=== PATIENT | female | born 1980 | race Caucasian/White ===

== ENCOUNTER 2020-02-21 12:07 | Inpatient (IN) ==
--- NOTE | 2020-02-21 12:08 | Emergency Department Note ---
Impression & Plan Stroke-like symptoms, Hypokalemia, Dizziness ED Provider Note NAME: ASMITA ALEGRIA AGE: 39 SEX: F : 1980 ARRIVES VIA: Ambulance INFORMANT: Patient, ED PROVIDER(S): Javid Deshpande MD Chief Complaint: Left upper extremity weakness, facial droop HPI: Patient was seen due to concern for left upper extremity weakness and facial droop. The patient did have associated slurred speech and numbness in the left upper extremity. The patient denies any fevers or chills. The patient states that the onset of symptoms was around 11 AM. The patient had been on her way with family to the pool. EMS did arrive and the patient still had some mild expressive aphasia per the patient but no further slurred speech and her weakness and droop had also dissipated. I did receive a prehospital command call for this and the patient had stable vital signs was afebrile and had a normal BSG. Upon presentation the patient states that her symptoms have subsequently improved. The patient denies symptoms i.e. chest pains, shortness of breath, abdominal pain, nausea, vomiting. The patient does complain of some head fullness but no pain. The patient does relate that she recently did start P90 X and did have 2 workouts. 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 Patient denies any alcohol tobacco or drug use. Patient does relate that she has had some slight fatigue and lightheadedness with position changes that have occurred over the last several weeks. No history of seizures. ROS: See HPI for pertinent positives and negatives. A total of 10 systems were reviewed and otherwise negative. Past medical history: See below Surgical history: See below Social history: See below Physical Exam: GENERAL: Wearing a mask. NAD, non-toxic. EYE EXAM: Normal conjunctiva. PERRL, no anisocoria and EOM's grossly intact w/o pain. NECK: Supple, no nuchal rigidity, no adenopathy, non-tender. No signs of meningismus. LUNGS: Clear to auscultation. Normal chest wall mechanics. HEART: NSR, no MRG. ABDOMEN: Abdomen soft, non-tender, normo-active bowel sounds, no masses, no rebound or guarding. BACK: No CVA TTP. SKIN: No rashes and no bruising. UPPER EXTREMITIES: Upper extremities are grossly normal. LOWER EXTREMITIES: Grossly normal, no edema. NEURO EXAM: A&O x3, cranial nerves II-XII grossly intact, normal speech, mild diffuse weakness of the bilateral upper and lower extremities nonfocal, no sensory deficits. Differential diagnoses: Infection, dehydration, metabolic abnormality, hypo/hyperglycemia, electrolyte disturbance, anemia, hypoxia, cardiac sources, intracerebral event, toxicologic, neurologic, as well as other pathologies. Course: Patient was seen and evaluated the bedside. Full history physical exam was performed. EKG: Indication: Stroke work-up Normal sinus rhythm, rate of 74, normal intervals, normal axis, no ST changes or T WI. No prior EKGs for comparison. Imaging Studies: Radiology results as stated below per my review in the radiologist's interpretation: CT head/brain wo con CT DOSE: HISTORY: Mental status change Stroke evaluation TECHNIQUE: Multiaxial CT images of the head were performed without the use of intravenous contrast. A dose lowering technique was utilized adhering to the principles of ALARA. Comparison: None. Findings: The paranasal sinuses and mastoid air cells are clear. The calvarium and skull base are intact. The ventricles and sulci are within normal limits. There is no mass, hematoma, midline shift, or acute infarct. Impression: No acute intracranial abnormality. ACT 112: Negative or not required by law. The above report was generated using voice recognition software. It may contain grammatical, syntax or spelling errors. Electronically signed by: Mayco Barriga M.D. 02/21/2020 12:27 PM Dictated: 02/21/20 1227 Transcribed: 02/21/20 1227 CTA ANGIOGRAPHY OF THE HEAD CLINICAL HISTORY: Stroke evaluation. COMPARISON STUDY: No previous studies for comparison. TECHNIQUE: Helical axial images of the head were obtained following uneventful intravenous administration of 120 cc of Optiray 320. Sagittal and coronal r econstructions were viewed as well as maximal intensity projections on an independent 3-D workstation. Automated exposure control was utilized for the study. A dose lowering technique was utilized adhering to the principles of ALARA. FINDINGS: Please note that the head CT will be reported separately. No acute intracranial hemorrhage, midline shift or mass effect is present. The ventricular system is normal. The basilar cisterns are patent. There are no extra axial collections. The bilateral M1, M2, A1 and A2 segments are patent. There is no intracranial aneurysm or abrupt vessel cutoff. No intraluminal thrombus is identified. The right vertebral artery is diminutive, likely on a congenital basis. The basilar artery is patent. The lateral posterior cerebral arteries are patent. Posterior circulation is intact. IMPRESSION: Unremarkable CTA of the head. ACT 112: Negative or not required by law. Electronically signed by: Gautam Arias M.D. 02/21/2020 12:39 PM Dictated: 02/21/207 Transcribed: 02/21/[address] angio neck with con HISTORY: Mental status change Stroke evaluation TECHNIQUE: Multiaxial CT angiography of the neck was performed IV contrast: 120 cc All measurements were calculated based on NASCET criteria. Maximum intensity projection images were also obtained. A dose lowering technique was utilized adhering to the principles of ALARA. COMPARISON STUDY: None. FINDINGS: The aortic arch and proximal great vessels are widely patent. There is no significant stenosis, occlusion, or dissection identified within the bilateral common carotid, internal carotid, or vertebral arteries. 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 IMPRESSION: No significant stenosis, occlusion, or dissection identified within the carotid or vertebral arteries. Congenitally small right vertebral artery. ACT 112: Negative or not required by law. The above report was generated using voice recognition software. It may contain grammatical, syntax or spelling errors. Electronically signed by: Mayco Barriga M.D. 02/21/2020 12:30 PM Dictated: 02/21/20 1227 Transcribed: 02/21/201226 MR brain wo con HISTORY: Pain. Neuropathy. LUE weakness/slurred speech TECHNIQUE: Multiplanar multisequence MRI of the brain was performed without the use of contrast. COMPARISON STUDY: None. FINDINGS: There are no areas of restricted diffusion to suggest acute infarction. The midline structures are intact. The paranasal sinuses are clear. The mastoid air cells are clear. The ventricles and sulci are within normal limits for age. There is no mass, hematoma, midline shift. The major vascular flow-voids at the skull base are well maintained. IMPRESSION: No acute intracranial abnormality. ACT 112: Negative or not required by law. The above report was generated using voice recognition software. It may contain grammatical, syntax or spelling errors. Electronically signed by: Mayco Barriga M.D. 02/21/2020 2:27 PM Dictated: 02/21/201425 Transcribed: 02/21/201425 Cardiac monitoring: An order was placed for continuous cardiac monitoring. The monitor shows a rate of 82 with sinus rhythm. MDM: Patient was seen due to concern for left upper extremity weakness and facial droop. Symptoms have essentially dissipated only with diffuse weakness. Blood work was obtained patient was given IV fluids. CT head and CT angiography of the head and neck were obtained and a code stroke was initiated when I did receive a prehospital command call given the patient symptoms. Speak with Dr. Wells with [facility] neurology tele-stroke. No TPA at this time as the patient has an NIH stroke scale of 0 with no focal deficits. Her symptoms have virtually resolved with the exception of diffuse weakness but no focal weakness or facial droop noted. Patient's blood work fairly unremarkable. Patient has normal white count H&H and platelet count. Patient's kidney function is unremarkable. Very mild hypokalemia noted. Troponin is not detectable. Patient CT of the head is negative. CT angios of the head and neck shows congenital right-sided vertebral being small. MR brain was also ordered after further discussion with Dr. Jackson recommended a full dose aspirin an MRI of the brain. MR brain negative. I did speak the on-call hospitalist and the patient was admitted by [facility] service by Dr. Tejeda. Critical Care: I have personally spent 42 minutes of critical care time in direct management of this patient. This includes bedside care, interpretation of diagnostic studies, and testing, discussion with consultants, patient, and family members, and other require inpatient management activities. This 42 minutes is in excess of all separately billable procedures. Past Med/Surg History Medical History delivery delivered Family History Mother Ovarian cancer Social History Smoking Status: Never smoker Hx Alcohol Use: Yes Alcohol type: wine Hx Substance Use: No Facs Teacher Required: No Beliefs That Will Affect Care: None Current Living Situation: Family Feels Safe at Home: Yes Safety Concerns: Feels Safe At This Time Allergies Allergies Allergy/AdvReac Type Severity Reaction Status Date / Time No Known Allergies Allergy Unverified 02/21/20 12:58 Home Meds Home Medications Medication Instructions Recorded Confirmed No Known Home Medications 02/21/20 02/21/20 Results & Data (ED) Vital Signs Vital Signs - 24 hr 02/21/20 12:15 02/21/20 12:40 02/21/20 13:05 Temperature 36.7 C Temperature Source Oral Pulse Rate 90 Pulse Rate [Finger] 82 88 Respiratory Rate 18 16 16 Respiratory Effort / Characteristics Non-Labored Non-Labored Non-Labored Respiratory Depth Normal Normal Normal Blood Pressure 120/79 Blood Pressure [Right Arm] 128/81 128/94 Blood Pressure Mean 92 Blood Pressure Mean [Right Arm] 96 105 Pulse Oximetry 100 100 100 Oxygen Delivery Method Room Air Room Air Room Air Sepsis Recent Fever Within 48 Hours No Sepsis New/Unexplained Change in Mental Status No Sepsis Action Taken by Nursing No Action Required 02/21/20 13:37 Temperature Temperature Source Pulse Rate Pulse Rate [Finger] 81 Respiratory Rate 16 Respiratory Effort / Characteristics Non-Labored Respiratory Depth Normal Blood Pressure Blood Pressure [Right Arm] 123/82 Blood Pressure Mean Blood Pressure Mean [Right Arm] 95 Pulse Oximetry 98 Oxygen Delivery Method Room Air Sepsis Recent Fever Within 48 Hours Sepsis New/Unexplained Change in Mental Status Sepsis Action Taken by [facility] Medications Current Medication List: was personally reviewed by me Laboratory Data Attestation: I reviewed the patient's lab results. Result diagrams: 02/21/20 12:05 02/21/20 12:20 Lab Results 02/21/20 02/21/20 02/21/20 Range/Units 12:05 12:20 12:20 WBC 6.50 (4.8-10.8) K/uL RBC 4.37 (4.2-5.4) M/uL Hgb 12.9 (12.0-16.0) g/dL Hct 38.2 (37-47) % MCV 87.4 (80-100) fL MCH 29.5 (25-34) pg MCHC 33.8 (32-36) g/dL RDW Std Deviation 39.5 (36.4-46.3) fL RDW Coeff of Laney 12.3 (11.5-14.5) % Plt Count 179 (130-400) K/uL MPV 11.1 H (7.4-10.4) fL Immature Gran % (Auto) 0.2 % Neut % (Auto) 50.1 % Lymph % (Auto) 39.5 % Stanton % (Auto) 8.5 % Eos % (Auto) 1.4 % Baso % (Auto) 0.3 % Neut # (Auto) 3.26 (1.4-6.5) K/uL Lymph # (Auto) 2.57 (1.2-3.4) K/uL Stanton # (Auto) 0.55 (0.11-0.59) K/uL Eos # (Auto) 0.09 (0-0.5) K/uL Baso # (Auto) 0.02 (0-0.2) K/uL Immature Gran # (Auto) 0.01 (0.00-0.02) K/uL PT 10.9 (9.0-12.0) Seconds INR 1.0 (0.9-1.1) APTT 26.1 (21.0-31.0) Seconds PTT Ratio 0.9 Sodium (136-145) mmol/L Potassium (3.5-5.1) mmol/L Chloride (98-107) mmol/L Carbon Dioxide (21-32) mmol/L Anion Gap (3-11) BUN (7-18) mg/dl Creatinine (0.6-1.2) mg/dl Est Cr Clr Drug Dosing ml/min Est GFR ( Amer) Est GFR (Non-Af Amer) BUN/Creatinine Ratio (10-20) Glucose (70-99) mg/dl Calcium (8.5-10.1) mg/dl Magnesium (1.8-2.4) mg/dl Total Bilirubin (0.2-1) mg/dl AST (15-37) U/L ALT (12-78) U/L Alkaline Phosphatase (45-117) U/L Total Creatine Kinase (26-192) U/L Troponin I (0-0.045) ng/ml Total Protein (6.4-8.2) gm/dl Albumin (3.4-5.0) gm/dl Globulin (2.5-4.0) gm/dl Albumin/Globulin Ratio (0.9-2) Blood Type A Positive Antibody Screen NEGATIVE 02/21/20 Range/Units 12:20 WBC (4.8-10.8) K/uL RBC (4.2-5.4) M/uL Hgb (12.0-16.0) g/dL Hct (37-47) % MCV (80-100) fL MCH (25-34) pg MCHC (32-36) g/dL RDW Std Deviation (36.4-46.3) fL RDW Coeff of Laney (11.5-14.5) % Plt Count (130-400) K/uL MPV (7.4-10.4) fL Immature Gran % (Auto) % Neut % (Auto) % Lymph % (Auto) % Stanton % (Auto) % Eos % (Auto) % Baso % (Auto) % Neut # (Auto) (1.4-6.5) K/uL Lymph # (Auto) (1.2-3.4) K/uL Stanton # (Auto) (0.11-0.59) K/uL Eos # (Auto) (0-0.5) K/uL Baso # (Auto) (0-0.2) K/uL Immature Gran # (Auto) (0.00-0.02) K/uL PT (9.0-12.0) Seconds INR (0.9-1.1) APTT (21.0-31.0) Seconds PTT Ratio Sodium 139 (136-145) mmol/L Potassium 3.3 L (3.5-5.1) mmol/L Chloride 106 (98-107) mmol/L Carbon Dioxide 26 (21-32) mmol/L Anion Gap 7.0 (3-11) BUN 10 (7-18) mg/dl Creatinine 0.80 (0.6-1.2) mg/dl Est Cr Clr Drug Dosing 103.4 ml/min Est GFR ( Amer) 106.1 Est GFR (Non-Af Amer) 91.6 BUN/Creatinine Ratio 12.6 (10-20) Glucose 103 H (70-99) mg/dl Calcium 9.9 (8.5-10.1) mg/dl Magnesium 1.9 (1.8-2.4) mg/dl Total Bilirubin 0.9 (0.2-1) mg/dl AST 17 (15-37) U/L ALT 26 (12-78) U/L Alkaline Phosphatase 41 L (45-117) U/L Total Creatine Kinase 68 (26-192) U/L Troponin I < 0.015 (0-0.045) ng/ml Total Protein 7.8 (6.4-8.2) gm/dl Albumin 4.0 (3.4-5.0) gm/dl Globulin 3.8 (2.5-4.0) gm/dl Albumin/Globulin Ratio 1.1 (0.9-2) Blood Type Antibody Screen Administered Medications Atorvastatin Calcium (Lipitor) 40 mg PO QAM VARUN Stop: 03/22/20 14:47 Last Admin: 02/21/20 15:58 Dose: 40 mg Documented by: [id number] Ondansetron HCl (Zofran) 4 mg IV Q6H PRN PRN Reason: Nausea Stop: 03/22/20 14:47 Last Admin: 02/21/20 15:25 Dose: 4 mg Documented by: [id number] Potassium Chloride (Klor-Con M20) 40 meq PO ONE ONE Stop: 02/21/20 17:01 Last Admin: 02/21/20 15:58 Dose: 40 meq Documented by: [id number] Discontinued Medications Aspirin (Aspirin) 324 mg PO NOW STA Stop: 02/21/20 12:58 Last Admin: 02/21/20 15:05 Dose: 324 mg Documented by: [id number] Sodium Chloride (Nss 1000ml) 1,000 mls @ 999 mls/hr IV .Q1H1M ONE Stop: 02/21/20 13:27 Last Infusion: 02/21/20 16:09 Dose: 0 mls/hr Documented by: [id number] Admin: 02/21/20 15:05 Dose: 999 mls/hr Documented by: [id number] Ioversol (Optiray 320 125ml) 120 ml IV ONCE ONE Stop: 02/21/20 12:12 Last Admin: 02/21/20 12:11 Dose: 120 ml Documented by: [id number] Discharge Plan Visit Data *Final* Discharge Date/Time: 02/21/20 14:28 Chief Complaint: Stroke Alert Stated Complaint: Stroke Alert ED Provider: Javid Deshpande Discharge Problem: Stroke-like symptoms, Hypokalemia, Dizziness Patient Disposition: Admitted As Inpatient Discharge Instructions Interventions: ED Discharge Assessment Last Done: 02/21/20 14:28
[2020-02-21] MEDS ORDERED: OPTIRAY 320 125ml IV ONE (12:11)
[2020-02-21] MEDS ORDERED: SODIUM CHLORIDE 0.9% 1000ML 1,000 ML IV ONE (12:27)
--- NOTE | 2020-02-21 12:28 | CT Scan Report ---
CT head/brain wo con CT DOSE: HISTORY: Mental status change Stroke evaluation TECHNIQUE: Multiaxial CT images of the head were performed without the use of intravenous contrast. A dose lowering technique was utilized adhering to the principles of ALARA. Comparison: None. Findings: The paranasal sinuses and mastoid air cells are clear. The calvarium and skull base are int act. The ventricles and sulci are within normal limits. There is no mass, hematoma, midline shift, or acute infarct. Impression: No acute intracranial abnormality. ACT 112: Negative or not required by law. The above report was generated using voice recognition software. It may contain grammatical, syntax or spelling errors. Electronically signed by: Mayco Barriga M.D. 02/21/2020 12:27 PM
[2020-02-21 12:29] LABS: Basophils # (auto) 0.02 K/uL (0-0.2); Basophils % (auto) 0.3 %; Eosinophils # (auto) 0.09 K/uL (0-0.5); Eosinophils % (auto) 1.4 %; Hematocrit (blood only) 38.2 % (37-47); Hemoglobin 12.9 g/dL (12.0-16.0); Immature Granulocytes # (auto) 0.01 K/uL (0.00-0.02); Immature Granulocytes % (auto) 0.2 %; Lymphocytes # (auto) 2.57 K/uL (1.2-3.4); Lymphocytes % (auto) 39.5 %; Mean Corpuscular Hemoglobin 29.5 pg (25-34); Mean Corpuscular Hgb Conc 33.8 g/dL (32-36); Mean Corpuscular Volume 87.4 fL (80-100); Mean Platelet Volume 11.1 fL (7.4-10.4); Monocytes # (auto) 0.55 K/uL (0.11-0.59); Monocytes % (auto) 8.5 %; Neutrophils # (auto) 3.26 K/uL (1.4-6.5); Neutrophils % (auto) 50.1 %; Platelet Count 179 K/uL (130-400); RDW Coefficient of Variation 12.3 % (11.5-14.5); RDW Standard Deviation 39.5 fL (36.4-46.3); Red Blood Count 4.37 M/uL (4.2-5.4)
--- NOTE | 2020-02-21 12:32 | CT Scan Report ---
CT angio neck with con HISTORY: Mental status change Stroke evaluation TECHNIQUE: Multiaxial CT angiography of the neck was performed IV contrast: 120 cc All measurements were calculated based on NASCET criteria. Maximum intensity projection images were also obtained. A dose lowering technique was utilized adhering to the principles of ALARA. COMPARISON STUDY: None. FINDINGS: The aortic arch and proximal great vessels are widely patent. There is no significant sten osis, occlusion, or dissection identified within the bilateral common carotid, internal carotid, or v ertebral arteries. 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 IMPRESSION: No significant stenosis, occlusion, or dissection identified within the carotid or vertebral arteries . Congenitally small right vertebral artery. ACT 112: Negative or not required by law. The above report was generated using voice recognition software. It may contain grammatical, syntax or spelling errors. Electronically signed by: Mayco Barriga M.D. 02/21/2020 12:30 PM
--- NOTE | 2020-02-21 12:41 | CT Scan Report ---
CTA ANGIOGRAPHY OF THE HEAD CLINICAL HISTORY: Stroke evaluation. COMPARISON STUDY: No previous studies for comparison. TECHNIQUE: Helical axial images of the head were obtained following uneventful intravenous administr ation of 120 cc of Optiray 320. Sagittal and coronal reconstructions were viewed as well as maximal i ntensity projections on an independent 3-D workstation. Automated exposure control was utilized for the study. A dose lowering technique was utilized adhering to the principles of ALARA. FINDINGS: Please note that the head CT will be reported separately. No acute intracranial hemorrhage, midline shift or mass effect is present. The ventricular system is normal. The basilar cisterns are patent. There are no extra axial collections. The bilateral M1, M2, A1 and A2 segments are patent. Th ere is no intracranial aneurysm or abrupt vessel cutoff. No intraluminal thrombus is identified. The right vertebral artery is diminutive, likely on a congenital basis. The basilar artery is patent. The lateral posterior cerebral arteries are patent. Posterior circulation is intact. IMPRESSION: Unremarkable CTA of the head. ACT 112: Negative or not required by law. Electronically signed by: Gautam Arias M.D. 02/21/2020 12:39 PM
[2020-02-21 12:48] LABS: Partial Thromboplastin Ratio 0.9; Partial Thromboplastin Time 26.1 Seconds (21.0-31.0); Prothrombin Time 10.9 Seconds (9.0-12.0)
[2020-02-21 12:51] LABS: Alanine Aminotransferase 26 U/L (12-78); Aspartate Aminotransferase 17 U/L (15-37); BUN Creatinine Ratio 12.6 (10-20); Blood Urea Nitrogen 10 mg/dl (7-18); Calcium 9.9 mg/dl (8.5-10.1); Carbon Dioxide 26 mmol/L (21-32); Chloride 106 mmol/L (98-107); Creatinine Clr Calc Pharmacy 103.4 ml/min; Est GFR (African American) 106.1; Est GFR (Non-African American) 91.6; Glucose 103 mg/dl (70-99); Magnesium 1.9 mg/dl (1.8-2.4); Potassium 3.3 mmol/L (3.5-5.1); Sodium 139 mmol/L (136-145)
[2020-02-21 12:55] LABS: Albumin Globulin Ratio 1.1 (0.9-2); Alkaline Phosphatase 41 U/L (45-117); Bilirubin,Total 0.9 mg/dl (0.2-1); Creatine Kinase 68 U/L (26-192); Globulin 3.8 gm/dl (2.5-4.0); Total Protein 7.8 gm/dl (6.4-8.2); Troponin I < 0.015 ng/ml (0-0.045)
[2020-02-21] MEDS ORDERED: ASPIRIN CHEW 324 MG PO STA (12:57)
--- NOTE | 2020-02-21 13:36 | History & Physical Report ---
Date of Service February 21, 2020 Assessment & Plan (1) Stroke-like symptoms: Stroke like symptoms Possible TIA Not a candidate for tPA Admit in Tele MRI Brain:No acute intracranial abnormality. CT head: showed no acute pathology Head CTA:Unremarkable CTA of the head. Neck CTA: No significant stenosis, occlusion, or dissection identified within the carotid or vertebral arteries. Congenitally small right vertebral artery. Stroke work up including lipid panel, A1C, ECHO Speech and swallow, PT/OT eval Start aspirin, Lipitor Neuro checks, Neurology consult Dizziness Likely orthostatic CT head: No acute intracranial findings Monitor in Telemetry for arrhythmia Check Orthostatics started on IV fluids ECHO pending Trend cardiac enzymes ECG shows:no signs of ischemia Fall precautions Hypokalemia Normal magnesium levels Will replete electrolytes as needed Palpitations Monitor on Tele Check TSH May need event monitor arranged as outpatient Initial Troponin negative Repeat EKG in AM DVT Px: SCDs for now Code Status Full Code History of Present Illness Chief Complaint: Stroke like symptoms Primary Care Provider: MD Beltran Hall is a 39 yr old female with 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 She noticed to have intermittent palpitations for last 2 weeks. She started doing P90 X workouts 2 days ago. Today morning, patient dis not have her breakfast but drank coffee and at around 11 Am she developed nausea, left calf numbness which extended upwards to her gluteal region, left facial numbness, B/L Leg weakness (Left greater than right) associated with slurred speech, occipital headache, proprioception, lightheadedness which lasted for about 60 minutes. Currently she has mild occipital headache, 3/10 intensity. Also currently dyspnea, palpitations resolved. Denies any history of chest pain, pedal edema, diaphoresis, cough, fever, chills, LOC, change in vision, double/blurry vision, vertigo, facial deformity, bowel/bladder incontinence, vomiting, abdominal pain, diarrhea, dysuria. She did admit to notice some lightheadedness with position change. Code Stroke was initiated in ED and ER physician spoke with Dr. Wells with [facility] neurology tele-stroke and was thought to be not a candidate for TPA. Her Imaging studies showed no acute changes. Allergies Allergy/AdvReac Type Severity Reaction Status Date / Time No Known Allergies Allergy Unverified 02/21/20 12:58 Home Medications Home Medications Medication Instructions Recorded Confirmed Type No Known Home Medications 02/21/20 02/21/20 History Past Med/Surg History Medical History delivery delivered Family History Mother Ovarian cancer Social History Smoking Status: Never smoker Hx Alcohol Use: Yes Alcohol type: wine Hx Substance Use: No Body Engineer Required: No Beliefs That Will Affect Care: None Current Living Situation: Family Feels Safe at Home: Yes Safety Concerns: Feels Safe At This Time Review of Systems Review of Systems: All systems reviewed & are unremarkable except as noted in HPI & below Physical Exam Physical Exam: Physical Exam: Vitals signs as noted above General Appearance:Moderately built and nourished, no apparent distress Head: normocephalic, Atraumatic Eyes: normal inspection, EOMI Neck: supple, Trachea midline Respiratory/Chest: Normal breath sounds, CTA, No accessory muscle use Cardiovascular: S1, S2, No murmur Abdomen/GI:Soft, Non tender, Bowel sounds present Extremities/Musculoskelatal:normal inspection, no edema Neurologic/Psych:AAOX3, grossly no focal neurological deficits Skin: normal color, warm Results & Data Results & Data ([facility]) Vital Signs (Past 12 Hours) Vital Signs Temp Pulse Pulse Resp BP BP Pulse Ox 02/21/20 13:05 88 16 128/94 100 02/21/20 12:40 82 16 128/81 100 02/21/20 12:15 36.7 C 90 18 120/79 100 Laboratory Results Short CBC 02/21/20 Range/Units 12:05 WBC 6.50 (4.8-10.8) K/uL Hgb 12.9 (12.0-16.0) g/dL Hct 38.2 (37-47) % Plt Count 179 (130-400) K/uL BMP 02/21/20 12:20 Sodium 139 Potassium 3.3 L Chloride 106 Carbon Dioxide 26 BUN 10 Creatinine 0.80 Glucose 103 H Calcium 9.9 Cardiac Enzymes 02/21/20 Range/Units 12:20 Total Creatine Kinase 68 (26-192) U/L Troponin I < 0.015 (0-0.045) ng/ml Liver Function 02/21/20 Range/Units 12:20 Total Bilirubin 0.9 (0.2-1) mg/dl AST 17 (15-37) U/L ALT 26 (12-78) U/L Alkaline Phosphatase 41 L (45-117) U/L Albumin 4.0 (3.4-5.0) gm/dl Diagnostic Findings MRI Brain: No acute intracranial abnormality. Head CTA: Unremarkable CTA of the head. Neck CTA: No significant stenosis, occlusion, or dissection identified within the carotid or vertebral arteries. Congenitally small right vertebral artery. Head CT: No acute intracranial abnormality. ECG Additional Comments: EKG: NSR with Sinus arrhythmia, QTC: 435
--- NOTE | 2020-02-21 14:29 | Magnetic Resonance Report ---
MR brain wo con HISTORY: Pain. Neuropathy. LUE weakness/slurred speech TECHNIQUE: Multiplanar multisequence MRI of the brain was performed without the use of contrast. COMPARISON STUDY: None. FINDINGS: There are no areas of restricted diffusion to suggest acute infarction. The midline structu res are intact. The paranasal sinuses are clear. The mastoid air cells are clear. The ventricles and sulci are within normal limits for age. There is no mass, hematoma, midline shift. The major vascular flow-voids at the skull base are well maintained. IMPRESSION: No acute intracranial abnormality. ACT 112: Negative or not required by law. The above report was generated using voice recognition software. It may contain grammatical, syntax or spelling errors. Electronically signed by: Mayco Barriga M.D. 02/21/2020 2:27 PM
[2020-02-21] MEDS ORDERED: POLYETHYLENE (MIRALAX) 17 GM PACK PO PRN (14:48)
[2020-02-21] MEDS ORDERED: PHARMACIST DISCHARGE MED REC CONSULT PRN (14:48)
[2020-02-21] MEDS ORDERED: ACETAMINOPHEN 325 MG TAB PO PRN (14:48)
[2020-02-21] MEDS ORDERED: ONDANSETRON INJ 2 MG/ML 2 ML VIAL IV PRN (14:48)
[2020-02-21] MEDS: ATORVASTATIN 40 MG TAB PO SCH (15:58)
[2020-02-21] MEDS: NSS + 20MEQ KCL 20 MEQ/1,000 ML BAG IV SCH (16:25)
[2020-02-21] MEDS ORDERED: POTASSIUM CHLORIDE 20 MEQ TABCR PO ONE (17:00)
[2020-02-21 17:30] LABS: Pregnancy Test, Serum Negative (Negative)
--- NOTE | 2020-02-21 18:33 | Consultation Report ---
DATE OF CONSULTATION: 02/21/2020 REASON FOR CONSULTATION: Episode of hemiparesis. 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 For the last several weeks, she has been feeling mildly lightheaded primarily with change in position. On the morning of admission, she awoke, had a cup of coffee and did an exercise regimen called P90. She indicates that it was not particularly much of a strain and there was not significant Valsalva maneuver. It sounds like it is mostly isometrics as well as yoga. She then went with her children and her to a local pool. Soon after she left the house, she felt nauseated. They went back to the house because they had left something and she decided to drive thinking that she was mildly car sick. She has been carsick in the past. She while driving noted left calf numbness, which ascended to the leg and a sense of that the limb was not attached to her, which then ascended over several minutes to involve the left trunk and the left face. Speech may have been mildly slurred as if someone had received Novocaine. She felt like the arm and the leg were mildly weak and had poor proprioception. There was no facial droop. There was no change in vision or scintillating visual phenomenon. The numbness was accompanied by tingling. The bulk of those symptoms lasted about an hour-an hour and a half, and 20-30 minutes later, she developed an occipital nonthrobbing bilateral headache without photophobia or phonophobia or nausea. She is left with some residual brain fog and some mild generalized weakness. Accompanying this symptoms was some brief shortness of breath but no chest pain. She has been feeling as mentioned previously mildly lightheaded with standing in the last 2 weeks. She has occasionally felt very brief palpitations that she has not been able to further characterize. She admits to generally not drinking enough water She has no prior history of transient neurologic symptoms. She denies ever having a migrainous headache or throbbing headache or headache with menstrual cycle. There is no family history of migraine. She has undergone chiropractic manipulation as recently as 2 days ago. She has otherwise not had any head or neck injury. No chest pain. The aforementioned shortness of breath and palpitations. She has had no medical or dental procedures, calf swelling or tenderness. Her weight has been stable, and her sleep has been unchanged. She has no personal history of rheumatic fever, heart murmur, DVT, PE or miscarriage. She is not currently . Her last menstrual cycle was approximately 2 weeks ago. She has not taken any medications and is not taking anything over the counter. PAST MEDICAL HISTORY: Notable for carrying the BRCA gene, cervical dysplasia low-grade level 1, vulvar intraepithelial neoplasia grade 2. PAST SURGICAL HISTORY: None. SOCIAL HISTORY: Nonsmoker. Drinks several drinks per week. No drug use. ALLERGIES: No allergies. MEDICATIONS: No home medications. FAMILY HISTORY: No family history of DVT, PE, early cardiovascular disease or stroke. Maternal grandfather of heart disease. Paternal grandfather . Maternal grandmother of cancer. Paternal grandmother of cancer. Father is well. Mother has BRCA2 ovarian cancer. REVIEW OF SYSTEMS: As above. DIAGNOSTICS: MRI of the brain, noncontrast is unremarkable. There are some minor nonspecific changes in the white matter. CTA of the head and neck, which I have reviewed, was also normal and CAT scan of the head was normal. EKG was sinus rhythm. CBC is unremarkable. PT, PTT normal. Chemistry profile notable for a potassium of 3.3, glucose of 103, CK of 68. PHYSICAL EXAMINATION: GENERAL: The patient is a well-developed female, in no distress. The patient is awake and alert with normal speech and language. Her affect is appropriate. VITAL SIGNS: 36.5, 69, respiratory rate 16, blood pressure 117/77, O2 sat 99% on room air. HEENT: Her head is normocephalic, atraumatic. NECK: There are no carotid bruits. HEART: No heart murmurs are appreciable.Heart is regular rate and rhythm LUNGS: Clear. ABDOMEN: Soft and nontender. EXTREMITIES: Radial pulses are palpably symmetric. No calf swelling or tenderness is noted. Posterior tibial pulses are intact. NEUROLOGIC: Pupils are equal, round, reactive to light. The optic nerves were grossly normal, normal gunn, motility, facial sensation and facial symmetry. Speech and language are normal. Tongue is midline. Sternocleidomastoid and trapezius are full. Motor 5/5. There may be a minor left drift, but there are equal rapid alternating movements. Lower extremities are full. Reflexes are symmetric. Toes are downgoing. [id number] and ulqg-md-[id number] are normal. There is no dysdiadochokinesia. Sensation is intact to light touch, temperature and vibration. There is no double simultaneous stimulus extinction. Gait is unremarkable as is tandem. IMPRESSION: Transient neurologic symptoms associated with headache, complicated migraine versus transient ischemic attack. PLAN: Agree with antiplatelet therapy with aspirin. The patient has been seen by stroke neurology. I assume that was their recommendation as well. Recommend echocardiography with a bubble study. If there is a PFO, then venous Doppler of the upper and lower extremities. Cardiac monitoring. Will need a diagnostic cardiac sonographer, Zio patch as an outpatient. The patient elects to have a hypercoagulable state workup as an outpatient. Assess lipid status. Recommend avoiding chiropractic manipulation of the neck. We will follow with you. TAJ
[2020-02-21 19:41] LABS: Thyroid Stimulating Hormone 0.681 uIu/ml (0.300-4.500); Troponin I < 0.015 ng/ml (0-0.045)
[2020-02-22] MEDS: NSS + 20MEQ KCL 20 MEQ/1,000 ML BAG IV SCH (00:16)
[2020-02-22 08:28] LABS: Basophils # (auto) 0.01 K/uL (0-0.2); Basophils % (auto) 0.2 %; Eosinophils # (auto) 0.12 K/uL (0-0.5); Eosinophils % (auto) 2.3 %; Hematocrit (blood only) 35.9 % (37-47); Lymphocytes # (auto) 2.32 K/uL (1.2-3.4); Lymphocytes % (auto) 44.6 %; Mean Corpuscular Hemoglobin 29.8 pg (25-34); Mean Corpuscular Hgb Conc 33.4 g/dL (32-36); Mean Corpuscular Volume 89.1 fL (80-100); Mean Platelet Volume 11.1 fL (7.4-10.4); Monocytes # (auto) 0.41 K/uL (0.11-0.59); Monocytes % (auto) 7.9 %; Neutrophils # (auto) 2.34 K/uL (1.4-6.5); Platelet Count 146 K/uL (130-400); RDW Coefficient of Variation 12.6 % (11.5-14.5); RDW Standard Deviation 40.2 fL (36.4-46.3); Red Blood Count 4.03 M/uL (4.2-5.4)
[2020-02-22] MEDS: ASPIRIN 81 MG ECTAB PO SCH ×2 (08:35→08:37)
[2020-02-22] MEDS: ATORVASTATIN 40 MG TAB PO SCH ×2 (08:35→08:37)
[2020-02-22 08:54] LABS: BUN Creatinine Ratio 10.4 (10-20); Calcium 8.6 mg/dl (8.5-10.1); Creatinine Clr Calc Pharmacy 117.8 ml/min; Est GFR (African American) 124.7; Est GFR (Non-African American) 107.6; Magnesium 1.9 mg/dl (1.8-2.4); Potassium 3.9 mmol/L (3.5-5.1)
[2020-02-22 09:36] LABS: Estimated Average Glucose 105 mg/dl; Hemoglobin A1C 5.3 % (4.5-5.6)
--- NOTE | 2020-02-22 09:47 | Hospitalist Progress Note ---
Date of Service February 22, 2020 Assessment & Plan (1) Stroke-like symptoms: Stroke like symptoms DD: Possible Complicated Migraine, Can not rule out TIA Not a candidate for tPA Admit in Tele MRI Brain:No acute intracranial abnormality. CT head: showed no acute pathology Head CTA:Unremarkable CTA of the head. Neck CTA: No significant stenosis, occlusion, or dissection identified within the carotid or vertebral arteries. Congenitally small right vertebral artery. lipid panel within normal limits Hb A1C:5.3 ECHO pending Speech and swallow, PT/OT eval done Continue aspirin 81mg daily Lipitor--Not recommended as LDL 55 (Discussed with Neurology) Neuro checks Appreciate Neurology Input Hypercoagulable work up as outpatient Dizziness Likely orthostatic CT head: No acute intracranial findings Monitor in Telemetry for arrhythmia Orthostatics negative Received IV fluids ECHO pending cardiac enzymes negative Fall precautions Hypokalemia Resolved Normal magnesium levels replete electrolytes as needed Intermittent Palpitations Monitor on Tele Normal TSH Recommended event monitor arranged as outpatient Troponin negative DVT Px: SCDs for now Encourage to ambulate Code Status Full Code Admission and Anticipated Discharge Date Admission Date: February 21, 2020 Subjective Patient is seen and examined at bedside Doing well this morning Symptoms completely resolved No recurrence of slurred speech Denies focal weakness, numbness, heaviness, facial droop, dysphagia, dizziness, chest pain, SOB, nausea, abd pain Palpitations resolved as well Offers no other complaints Transient sinus arrhythmia on monitor overnight, no other events/alarms Did well with PT this morning Review of Systems Review of Systems: All systems reviewed & are unremarkable except as noted in HPI & below Physical Exam Physical Exam: Physical Exam: Vitals signs as noted above General Appearance:Moderately built and nourished, no apparent distress Head: normocephalic, Atraumatic Eyes: normal inspection, EOMI Neck: supple, Trachea midline Respiratory/Chest: Normal breath sounds, CTA, No accessory muscle use Cardiovascular: S1, S2, No murmur Abdomen/GI:Soft, Non tender, Bowel sounds present Extremities/Musculoskelatal:normal inspection, no edema Neurologic/Psych:AAOX3, grossly no focal neurological deficits Skin: normal color, warm Results & Data Results & Data ([facility]) Vital Signs (Past 12 Hours) Vital Signs Temp Pulse Pulse Resp BP Pulse Ox 02/22/20 07:37 53 L 02/22/20 03:00 36.7 C 70 16 89/51 L 100 02/22/20 00:26 71 02/21/20 23:19 36.7 C 54 L 18 111/67 96 Laboratory Results Short CBC 02/21/20 02/22/20 Range/Units 12:05 08:15 WBC 6.50 5.20 (4.8-10.8) K/uL Hgb 12.9 12.0 (12.0-16.0) g/dL Hct 38.2 35.9 L (37-47) % Plt Count 179 146 (130-400) K/uL BMP 02/21/20 02/22/20 12:20 08:15 Sodium 139 143 Potassium 3.3 L 3.9 D Chloride 106 114 H Carbon Dioxide 26 26 BUN 10 7 Creatinine 0.80 0.70 Glucose 103 H 98 Calcium 9.9 8.6 Cardiac Enzymes 02/21/20 02/21/20 Range/Units 12:20 19:04 Total Creatine Kinase 68 (26-192) U/L Troponin I < 0.015 < 0.015 (0-0.045) ng/ml Liver Function 02/21/20 Range/Units 12:20 Total Bilirubin 0.9 (0.2-1) mg/dl AST 17 (15-37) U/L ALT 26 (12-78) U/L Alkaline Phosphatase 41 L (45-117) U/L Albumin 4.0 (3.4-5.0) gm/dl
[2020-02-22] MEDS ORDERED: STROKE PATIENT DISCHARGE STA (10:06)
--- NOTE | 2020-02-22 10:07 | Discharge Summary ---
Date of Service February 22, 2020 Admission HPI Per Admitting Provider is a 39 yr old female with 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 She noticed to have intermittent palpitations for last 2 weeks. She started doing P90 X workouts 2 days ago. Today morning, patient dis not have her breakfast but drank coffee and at around 11 Am she developed nausea, left calf numbness which extended upwards to her gluteal region, left facial numbness, B/L Leg weakness (Left greater than right) associated with slurred speech, occipital headache, proprioception, lighthead edness which lasted for about 60 minutes. Currently she has mild occipital headache, 3/10 intensity. Also currently dyspnea, palpitations resolved. Denies any history of chest pain, pedal edema, diaphoresis, cough, fever, chills, LOC, change in vision, double/blurry vision, vertigo, facial deformity, bowel/bladder incontinence, vomiting, abdominal pain, diarrhea, dysuria. She did admit to notice some lightheadedness with position change. Code Stroke was initiated in ED and ER physician spoke with Dr. Wells with [facility] neurology tele-stroke and was thought to be not a candidate for TPA. Her Imaging studies showed no acute changes. Admission Exam Per Admitting Provider Physical Exam: Vitals signs as noted above General Appearance:Moderately built and nourished, no apparent distress Head: normocephalic, Atraumatic Eyes: normal inspection, EOMI Neck: supple, Trachea midline Respiratory/Chest: Normal breath sounds, CTA, No accessory muscle use Cardiovascular: S1, S2, No murmur Abdomen/GI:Soft, Non tender, Bowel sounds present Extremities/Musculoskelatal:normal inspection, no edema Neurologic/Psych:AAOX3, grossly no focal neurological deficits Skin: normal color, warm Principal Diagnosis Stroke like symptoms Possible Complicated Migraine Can not rule out TIA Discharge Data Allergies Allergy/AdvReac Type Severity Reaction Status Date / Time No Known Allergies Allergy Unverified 02/21/20 12:58 Consultations 02/21/20 13:33 ED Decision to Admit Stat 02/21/20 14:48 Consult Case Management - Discharge Planning Routine Consult Neurology Routine Procedures Performed MRI Brain:No acute intracranial abnormality. CT head: showed no acute pathology Head CTA:Unremarkable CTA of the head. Neck CTA: No significant stenosis, occlusion, or dissection identified within the carotid or vertebral arteries. Congenitally small right vertebral artery. ECHO: There is normal left ventricular wall thickness. The left ventricular wall motion is normal. The left ventricular ejection fraction 55 to 60%. The left ventricular diastolic function is normal. The right ventricular chamber size and systolic function are normal. Ordered Studies 02/21/20 12:05 CT angio head w con Stat CT angio neck with con Stat CT head/brain wo con Stat 02/21/20 12:57 MR brain wo con Stat Hospital Course (1) Stroke-like symptoms: Stroke like symptoms DD: Possible Complicated Migraine, Can not rule out TIA Not a candidate for tPA Admit in Tele MRI Brain:No acute intracranial abnormality. CT head: showed no acute pathology Head CTA:Unremarkable CTA of the head. Neck CTA: No significant stenosis, occlusion, or dissection identified within the carotid or vertebral arteries. Congenitally small right vertebral artery. lipid panel within normal limits Hb A1C:5.3 ECHO pending Speech and swallow, PT/OT eval done Continue aspirin 81mg daily Lipitor--Not recommended as LDL 55 (Discussed with Neurology) Neuro checks Appreciate Neurology Input Hypercoagulable work up as outpatient Dizziness Likely orthostatic CT head: No acute intracranial findings Monitor in Telemetry for arrhythmia Orthostatics negative Received IV fluids ECHO pending cardiac enzymes negative Fall precautions Hypokalemia Resolved Normal magnesium levels replete electrolytes as needed Intermittent Palpitations Monitor on Tele Normal TSH Recommended event monitor arranged as outpatient Troponin negative DVT Px: SCDs for now Encourage to ambulate Code Status Full Code Total Time Total Time Spent Total Time Spent (In Minutes): 35 minutes Total Time Includes: Examination of the Patient, Discharge Planning, Medication Reconciliation, Communication With Other Providers and Other Discharge Plan Discharge Items Patient Disposition: Home - Self-Care Reason For Visit: STROKE LIKE SYMPTOMS Discharge Diagnosis: Stroke like symptoms Possible Complicated Migraine Can not rule out TIA Activity: Resume your previous activity Exercise/Sports: Gradually increase as tolerated Non-emergency contact: Primary Care Provider and Neurologist Call non-emergency contact if: you have any medication questions, your symptoms worsen, your pain is not controlled, your pain is worsening, your pain is unusual for you and your pain is concerning for you Follow-up/Referrals: Darius Cedeno MD [Primary Care Provider] - 02/27/20 11:20 am (DR DUARTE APT WILL BE ON MAR 08, 2020 AT 08:40 AM) Diet: Regular Addtl Attending Provider Instructions: Follow up with your PCP in 1 week Follow up with your Neurologist in 4 weeks Your ECHO cardiogram is pending. Please follow up for results. If ASD or PFO present on ECHO, please obtain Venous doppler to rule out DVT. Get Hypercoagulable work up as outpatient as recommend by your Neurologist Get tester compressed gases arranged as outpatient as recommend by your Neurologist New Medications Aspirin 81 mg daily Consider Magnesium/Vitamin B2 supplements prophylactically if any recurrence of headache Seek immediate medical attention if your symptoms reoccur or worsen Risk Factors for Stroke: You can reduce your chances of stroke by working with your medical provider to adopt a healthy lifestyle. Some specific ways to lower your chance of stroke are: * If you are a smoker, now is the time to stop smoking cigarettes * If you are diabetic, improve the control of your blood sugars * Avoid excessive amounts of alcohol * Control high blood pressure * Lose weight if you are overweight * Be sure to lead an active lifestyle * Eat a healthy diet low in salt, cholesterol and fat You should know about other risk factors for stroke that you are unable to control. These include: * Age 55 years or older * Male gender * Certain racial groups: , or / * Family History of Stroke, Mini stroke or Heart Attack * Sickle Cell Disease Follow Up: It is important for you to keep your follow up appointments with your medical provider. Who to Call and When: Medical Emergencies: Call 911 immediately if you experience any of the following warning signs and symptoms of Stroke: * Sudden numbness or weakness of the face, arm or leg, especially on one side of the body * Sudden confusion, trouble speaking or understanding * Sudden trouble seeing in one or both eyes * Sudden trouble walking, dizziness, loss of balance or coordination * Sudden severe headache with no cause Do not delay calling 911 if you experience any warning signs or symptoms of a stroke. Delay in seeking medical attention may affect what treatments can be given to you. . Pending Studies at Discharge: Yes Studies:: ECHO Stand-Alone Forms: My [employer], Smoking Cessation Medications and DC Order Prescriptions: New aspirin 81 mg Tablet,Delayed Release (Dr/Ec) 81 mg PO QAM 30 Days Qty: 30 RF: 0 No Action No Known Home Medications RF: 0 Discharge Orders: Discharge Order (Routine); Ordered 02/22/20 Ordered By: Kip Tillman/Other Patient Handouts: 4 Steps for Eating Healthier Admission Data Admit Date/Time: 02/21/20 14:04 Attending Provider: Kip Tejeda Admit Provider: Kip Tejeda Primary Care Provider: Darius Cedeno Other Providers: Kip Tejeda ; Oma Duarte Other Interventions: Discharge Summary Assessment (RN) Last Done: 02/22/20 10:23
--- NOTE | 2020-02-23 05:57 | Electrocardiogram Report ---
Test Reason : Blood Pressure : / mmHG Vent. Rate : 074 BPM Atrial Rate : 074 BPM P-R Int : 156 ms QRS Dur : 090 ms QT Int : 392 ms P-R-T Axes : 043 035 046 degrees QTc Int : 435 ms Normal sinus rhythm with sinus arrhythmia Normal ECG No previous ECGs available Confirmed by Hugo Hernández ([id number]) on 02/23/2020 5:57:09 AM Referred By: REFERRED SELF Confirmed By:Hugo Hernández
--- NOTE | 2020-02-23 06:16 | Electrocardiogram Report ---
Test Reason : Blood Pressure : / mmHG Vent. Rate : 063 BPM Atrial Rate : 063 BPM P-R Int : 164 ms QRS Dur : 084 ms QT Int : 408 ms P-R-T Axes : 033 021 040 degrees QTc Int : 417 ms Normal sinus rhythm Cannot rule out Inferior infarct , age undetermined Abnormal ECG When compared with ECG of 21-FEB-2020 12:50, No significant change was found Confirmed by Hugo Hernández ([id number]) on 02/23/2020 6:16:05 AM Referred By: REFERRED SELF Confirmed By:Hguo Hernández
== END 2020-02-22 11:15 | disposition home or self-care (01) | DRG 103 ==
LOC: ED 12:07 → 2S 14:04